=== PATIENT | male | born 1980 | race Caucasian/White ===

== ENCOUNTER 2022-10-17 08:00 | Day surgery (SDC) | payer BC, OTHER ==
[2022-10-14 16:06] VITALS: BMI 33.1
[2022-10-17] MEDS ORDERED: Bupivacaine PF 0.5% 30 ML VIAL ONE (09:18)
[2022-10-17] MEDS ORDERED: Neomycin-Polymyxin 1 ML AMP ONE (09:20)
[2022-10-17] MEDS ORDERED: Metoclopramide HCl 10 MG/2 ML VIAL ONE (09:47)
[2022-10-17] MEDS ORDERED: Ondansetron PF 4 MG/2 ML Vial ONE (09:47)
[2022-10-17] MEDS ORDERED: PROPOFOL 20 ML ONE (09:47)
[2022-10-17] MEDS ORDERED: Lidocaine 2% PF 5 ML VIAL ONE (09:47)
[2022-10-17] MEDS ORDERED: Fentanyl 100 MCG/2 ML VIAL ONE (09:47)
[2022-10-17] MEDS ORDERED: Dexamethasone 4 mg/ml Vial ONE (09:47)
[2022-10-17] MEDS ORDERED: Famotidine/PF 20 mg/2ml Vial ONE (09:48)
[2022-10-17] MEDS ORDERED: CEFAZOLIN 2 GM VIAL ONE (09:54)
[2022-10-17] MEDS ORDERED: Midazolam HCl 2 mg/2 ml Vial ONE (10:07)
[2022-10-17] MEDS ORDERED: Ketorolac Tromethamine 30 MG/ML VIAL ONE (10:24)
[2022-10-17] MEDS ORDERED: Meperidine HCl/PF 25 MG/ML VIAL ONE (10:44)
== END 2022-10-17 12:05 | disposition home or self-care (01) ==
LOC: CSHSDC 08:00
PROVIDERS: ATTEND Podiatrist Foot & Ankle Surgery
PROC: 0QBN0ZZ Excision of Right Metatarsal, Open Approach (ICD-10-PCS; principal; 2022-10-17)
PROC: 0QSN04Z Reposition Right Metatarsal with Internal Fixation Device, Open Approach (ICD-10-PCS; principal; 2022-10-17)
PROC: 0QBQ0ZZ Excision of Right Toe Phalanx, Open Approach (ICD-10-PCS; 2022-10-17)
DX: M20.21 Hallux rigidus, right foot (principal); I10 Essential (primary) hypertension; Z79.899 Other long term (current) drug therapy
CPT/HCPCS: J1100; J1885; J2001; J2175; J2250; J2405; J2704; J2765; J3010; S0020; S0028